=== PATIENT | female | born 1960 | race Caucasian/White ===

== ENCOUNTER 2018-11-12 12:00 | Inpatient (IN) | payer BC, OTHER ==
[2018-11-11 11:21] VITALS: BMI 21.6
[~2018-11-12] VITALS: Ht 165.1 cm; Wt 64.6 kg
[2018-11-20] VITALS (24 sets, daily range): BP systolic 99–158; BP diastolic 55–86; PULSE 90–117; RESP 8–19; Ht 165.1 cm; Wt 64.6 kg
[2018-11-20] MEDS ORDERED: SUCCINYLCHOLINE CHLORIDE 100 MG/5 ML SYG IV ONE (07:00)
[2018-11-20] MEDS ORDERED: ETOMIDATE 20 MG INJ ONE (07:00)
[2018-11-20] MEDS ORDERED: SEVOFLURANE 15 MIN ONE (07:00)
--- NOTE | 2018-11-20 07:28 | PREOPHP ---
DATE OF ADMISSION: 11/20/2018 HISTORY OF PRESENT ILLNESS: The patient was originally seen in the office for evaluation of neck bell n, shoulder pain, arm pain with difficulty in ambulation. She had an old MRI which shows a cervical 5 to 6 spondylosis. The patient had a repeat MRI of the cervical spine which showed a cervical 5-6 d isk rupture with cord compression and compression of the nerve root. Unfortunately, patient has fail ed conservative management. She wants something more definite to be done at this point. Surgical op tion was discussed with the patient in great detail with C5-C6 partial vertebrectomy, diskectomy, int erbody fusion, anterior locking plate. The patient understands and wants to proceed with surgery as soon as possible. PAST MEDICAL HISTORY: Per chart. SURGICAL HISTORY: Per chart. SOCIAL HISTORY: Denies drugs, alcohol, tobacco. ALLERGIES: PER CHART. MEDICATIONS: Taken at home per chart. FAMILY HISTORY: Unremarkable. REVIEW OF SYSTEMS: Additional 10-point review of systems conducted. Pertinent positives stated in h istory, otherwise negative. PHYSICAL EXAMINATION: GENERAL: The patient is awake, alert, and oriented, following commands. HEENT: Unremarkable. PULMONARY: No dyspnea noted. CARDIOVASCULAR: No JVD. No . ABDOMEN: Soft. No guarding. NEUROLOGICAL: She is GCS 15. EXTREMITIES: She has equal strength. Sensation is intact. MRI of the cervical spine shows C5-6 disk rupture with compression of the thecal sac as well as compr ession of the nerve root. Recommendation is to proceed with surgical intervention with a C5-6 partia l vertebrectomy, diskectomy, interbody fusion, anterior locking plate. The procedure was explained to the patient in great detail. I spent approximately 30 minutes going ov er details of surgery. Complications explained including infection, bleeding, permanent nerve damage , stroke, heart attack and even complications associated with anesthesia. The patient understands and wants to proceed with surgical intervention. She will be admitted to the hospital thereafter for fu rther care and management. Dictated By: HARSHIL ROLON/CHRIS Conf#: [id number] DID#: [id number]
[2018-11-20] MEDS ORDERED: SERT100T PO (10:56)
[2018-11-20] MEDS ORDERED: BUSP10TA2 PO (10:57)
[2018-11-20] MEDS ORDERED: LAMO100T83 PO (10:57)
[2018-11-20] MEDS ORDERED: CYCL10TA7 PO (10:58)
[2018-11-20] MEDS ORDERED: GABA-528 PO (10:58)
[2018-11-20] MEDS ORDERED: THROMBIN (BOVINE) 5,000 UNIT VIAL TP ONE (11:34)
[2018-11-20] MEDS ORDERED: LIDOCAINE 1%/EPI (1:100,000) (MDV) 20 ML ONE ×2 (11:34→15:01)
[2018-11-20] MEDS ORDERED: POLYMYXIN/BACITRACIN 1L IRRIG ONE (11:34)
[2018-11-20] MEDS ORDERED: GELATIN SIZE 100 SPONGE ONE (11:34)
[2018-11-20] MEDS ORDERED: MIDAZOLAM 1 MG/ML 2 ML INJ ONE ×2 (12:14→14:53)
[2018-11-20] MEDS ORDERED: DEXAMETHASONE 4 MG/ML 5 ML INJ ONE (13:38)
[2018-11-20] MEDS ORDERED: hydrALAzine 20 MG INJ ONE (13:43)
[2018-11-20] MEDS ORDERED: PROPOFOL 20 ML ONE (14:21)
[2018-11-20] MEDS ORDERED: LIDOCAINE 2% (SDV) 5 ML INJ ONE (14:21)
[2018-11-20] MEDS ORDERED: GLYCOPYRROLATE 0.4 MG INJ ONE (14:21)
[2018-11-20] MEDS ORDERED: NEOSTIGMINE 10 MG INJ ONE (14:21)
[2018-11-20] MEDS ORDERED: METOCLOPRAMIDE 10 MG INJ ONE (14:21)
[2018-11-20] MEDS ORDERED: ONDANSETRON 4 MG INJ ONE (14:21)
[2018-11-20] MEDS ORDERED: ROCURONIUM 50 MG INJ ONE (14:21)
--- NOTE | 2018-11-20 14:35 | OPR ---
Date/Time of Note Date/Time of Note DATE: 11/20/18 TIME: 14:32 Operative Report Preoperative Diagnosis CERVICAL FIVE SIX DISC RUPTURE Postoperative Diagnosis SAME Operation/Procedure Performed CERVICAL FIVE SIX PARTIAL VERTEBRECTOMY, DISKECTOMY, INTERBODY FUSION AND ANTERI OR LOCKING PLATE Surgeon see signature line Personnel Consultant DANAY JOSUE Anesthesia Type: general Estimated Blood Loss: 10 - 50 ml's Transfusion none Specimen NONE Grafts/Implants SYNTHES SIZE 10 INTERBODY LOCKING PLATE Complications none Procedure Description CERVICAL FIVE SIX PARTIAL VERTEBRECTOMY, DISKECTOMY, INTERBODY FUSION AND ANTERIOR LOCKING PLATE DANAY YEPEZ PA-C Nov 20, 2018 14:35
[2018-11-20] MEDS ORDERED: CEFAZOLIN 1 GM INJ ONE (14:42)
[2018-11-20] MEDS ORDERED: FENTAnyl 50 MCG/ML VIAL ONE (14:49)
--- NOTE | 2018-11-20 14:56 | PAC ---
Date/Time of Note Date/Time of Note DATE: 11/20/18 TIME: 14:55 Post-Anesthesia Notes Post-Anesthesia Note Last documented vital signs Vital Signs Date Temp Pulse Resp B/P (MAP) Pulse Ox O2 O2 Flow FiO2 Time Delivery Rate 11/20/18 99.8 94 16 158/76 97 10:30 (103) Activity: WNL Respiratory function: WNL Cardiovascular function: WNL Mental status: Baseline Pain reasonably controlled: Yes Hydration appropriate: Yes Nausea/Vomiting absent: Yes Comments BP:112/67, P:88, Spo2:100%, T:98,9 SARAH MORILLO MD Nov 20, 2018 14:55
[2018-11-20] MEDS ORDERED: HYDROmorphONE 1 MG/5 ML IV SYRINGE IV ONE (14:59)
[2018-11-20] MEDS ORDERED: niCARdipine 50 MG in SOD CHLORIDE 0.9% 480 ML IV PRN (15:00)
[2018-11-20] MEDS ORDERED: ONDANSETRON 4 MG INJ IV PRN ×2 (15:00)
[2018-11-20] MEDS ORDERED: FENTAnyl 50 MCG/ML VIAL IV PRN (15:00)
[2018-11-20] MEDS ORDERED: LABETALOL HCL 20MG INJ IV PRN (15:00)
[2018-11-20] MEDS ORDERED: HYDROmorphONE 1 MG/5 ML IV SYRINGE IV PRN (15:00)
[2018-11-20] MEDS ORDERED: hydrALAzine 20 MG INJ IV PRN (15:00)
[2018-11-20] MEDS ORDERED: MIDAZOLAM 1 MG/ML 2 ML INJ IV PRN (15:00)
[2018-11-20] MEDS ORDERED: METOCLOPRAMIDE 10 MG INJ IV PRN (15:00)
[2018-11-20] MEDS: HYDROmorphONE 1 MG/5 ML IV SYRINGE IV PRN ×2 (15:02→15:11)
[2018-11-20] MEDS ORDERED: MIDAZOLAM 1 MG/ML 2 ML INJ IV ONE (15:30)
[2018-11-20] MEDS: FENTAnyl 50 MCG/ML VIAL IV PRN ×2 (16:07→16:31)
[2018-11-20] MEDS ORDERED: HYDROmorphONE 0.2 MG/ML PCA ONE (16:19)
[2018-11-20] MEDS ORDERED: HYDROmorphONE 0.2 MG/ML PCA IV SCH (16:30)
--- NOTE | 2018-11-20 17:45 | HP ---
Date/Time of Note Date/Time of Note DATE: 11/20/18 TIME: 17:42 Assessment/Plan VTE Prophylaxis Risk score (from Nsg)>0 risk: 3 SCD applied (from Nsg): Yes SCD contraindicated: other Pharmacological prophylaxis: other Lines/Catheters IV Catheter Type (from Nrsg): Peripheral IV Urinary Cath still in place: Yes Reason Cath still needed: urinary retention, other (indicate) (sp p ost op ) Assessment/Plan Assessment/Plan - CERVICAL 5- CERVICAL 6 DISC RUPTURE -- Intractable neck; shoulder. BUE pain- 2/2 above - SP CERVICAL FIVE SIX PARTIAL VERTEBRECTOMY, DISKECTOMY, INTERBODY FUSION AND ANTERIOR LOCKING PLATE today - admit to ICU - admission orders done - per neuro surgery - diet per neuro sx - pain control- Dilaudid PIPE FITTER - SCD - Hx OF C5-C6 - Anxiety- none at present - Mood disorder Patient seen in collaboration with Dr Sanduh HPI/ROS Admit Date/Time Admit Date/Time Nov 20, 2018 at 09:47 Hx of Present Illness This 58 years old female patient was seen by Dr Dwyer for evaluation of her neck pain, shoulder pain, arm pain with difficulty in ambulation. Her old MRI which shows a cervical 5 to 6 spondylosis. Then a repeat MRI of the cervical spine showed cervical 5-6 disk rupture with cord compression and compression of the nerve root. But patient failed the conservative management. Patient underwent C5-C6 partial vertebrectomy, diskectomy, interbody fusion, anterior locking plate today by Patient is admitted in ICU under Dr Sandhu for further evaluation and treatment. During assessment; watching TV; seems comfortable; patient has NAD; feels better. He denies any chest pain, shortness of breath, palpitations. headache,focal weakness/numbness, right or left calf pain, abdominal pain, nausea/vomitting/diarrhea. Family at bed side- all Qs answered.Plan of care reviewed with family and staff ROS Constitutional: improved Eyes: no complaints ENT: no complaints Respiratory: no complaints Cardiovascular: no complaints Gastrointestinal: pain Genitourinary: no complaints Musculoskeletal: neck pain Skin: no complaints Neurologic: no complaints Endocrine: no complaints Lymphatic: no complaints PMH/Family/Social Past Medical History -C5-C6 spondylosis -Mood disorder -Anxiety Medical History: hypertension Medications Current Medications Dextrose/Lactated Ringer's 1,000 ml @ 120 mls/hr Q8H20M IV ; Start 11/20/18 at 15:00 Cefazolin Sodium 50 ml @ 100 mls/hr Q8 IVPB ; Start 11/20/18 at 22:00; Stop 11/21/18 at 22:00 Nicardipine HCl 50 mg/Sodium Chloride 500 ml @ 50 mls/hr TITRATE PRN IV KEEP SBP<140; Start 11/20/18 at 15:00 Ondansetron HCl (Zofran Inj) 4 mg Q6H PRN IV NAUSEA AND/OR VOMITING; Start 11/20/18 at 15:00 Hydromorphone HCl (Dilaudid) 1 mg Q3H PRN IV SEVERE PAIN LEVEL 7-10; Start 11/20/18 at 15:00 Dexamethasone (Decadron) 4 mg Q6 IV ; Start 11/20/18 at 18:00; Stop 11/21/18 at 18:00 Hydromorphone HCl (Dilaudid) 0.2 mg PACU PRN IV MILD PAIN 1-3 Last administered on 11/20/18at 15:26; Admin Dose 0.2 MG; Start 11/20/18 at 15:00; Stop 11/20/18 at 19:00 Hydromorphone HCl (Dilaudid) 0.4 mg PACU PRN IV MOD PAIN 4-6 Last administered on 11/20/18at 15:11; Admin Dose 0.4 MG; Start 11/20/18 at 15:00; Stop 11/20/18 at 19:00 Fentanyl (Sublimaze) 25 mcg PACU ORDER PRN IV MILD PAIN 1-3 Last administered on 11/20/18at 16:31; Admin Dose 25 MCG; Start 11/20/18 at 15:00; Stop 11/20/18 at 19:00 Fentanyl (Sublimaze) 50 mcg PACU ORDER PRN IV MOD PAIN 4-6; Start 11/20/18 at 15:00; Stop 11/20/18 at 19:00 Ondansetron HCl (Zofran Inj) 4 mg PACU ORDER PRN IV NAUSEA/VOMITING; Start 11/20/18 at 15:00; Stop 11/20/18 at 19:00 Metoclopramide HCl (Reglan) 10 mg PACU ORDER PRN IV NAUSEA/VOMITING; Start 11/20/18 at 15:00; Stop 11/20/18 at 19:00 Labetalol HCl (Labetalol) 5 mg PACU ORDER PRN IV HIGH BLOOD PRESSURE; Start 11/20/18 at 15:00; Stop 11/20/18 at 19:00 Hydralazine HCl (Apresoline) 5 mg PACU ORDER PRN IV HIGH BLOOD PRESSURE; Start 11/20/18 at 15:00; Stop 11/20/18 at 19:00 Midazolam HCl (Versed) 0.5 mg PACU ORDER PRN IV .ANXIETY; Start 11/20/18 at 15:00; Stop 11/20/18 at 19:00 Hydromorphone HCl (Dilaudid PIPE FITTER) 0.4 mg Q4PCA IV Last administered on 11/20/18at 16:27; Admin Dose 0.4 MG; Start 11/20/18 at 16:30 Coded Allergies: diphenhydramine (Verified Allergy, Unknown, AGGITATED, 11/20/18) morphine (Verified Allergy, Unknown, ITCHY, 11/20/18) Past Surgical History Past Surgical Hx: cholecystectomy Family History Significant Family History: no pertinent family hx Social History Smoking Status: Former smoker Drug Use: none Exam/Review of Systems Vital Signs Vitals Vital Signs Date Temp Pulse Resp B/P (MAP) Pulse Ox O2 O2 Flow FiO2 Time Delivery Rate 11/20/18 103 11 113/72 98 17:15 (86) 11/20/18 98.0 17:03 11/20/18 Nasal 2.0 16:38 Cannula Exam Constitutional: alert, well developed Psych: nl mood/affect Head: atraumatic Eyes: nl lids ENMT: nl external ears & nose Neck: supple Respiratory: diminished breath sounds Cardiovascular: nl pulses, other (s1s2) Gastrointestinal: soft, non-tender Genitourinary - Female: other (deffered) Musculoskeletal: nl extremities to inspection Extremities: normal pulses Neurological: nl speech, other (sp C5-C6 surgey; hard neck collar noted; inta ct) Skin: nl ELENA Lyons Nov 20, 2018 17:45
[2018-11-20] MEDS: DEXTROSE 5%-LR 1,000 ML IV SCH ×2 (18:06→19:00)
[2018-11-20] MEDS: DEXAMETHASONE 4 MG/ML 1 ML INJ IV SCH ×2 (18:40→23:35)
[2018-11-20] MEDS: BUSPIRONE 5 MG TAB PO SCH (20:47)
[2018-11-20] MEDS: LAMOTRIGINE 100 MG TAB PO SCH (20:47)
[2018-11-20] MEDS: GABAPENTIN 400 MG CAP PO SCH (20:51)
[2018-11-20] MEDS: CEFAZOLIN 1 GM/50 ML (PMX) 50 ML IVPB SCH (21:36)
[2018-11-20] MEDS: HYDROmorphONE 0.2 MG/ML PCA IV SCH (23:03)
[2018-11-21] VITALS (45 sets, daily range): BP systolic 82–166; BP diastolic 68–127; PULSE 85–120; RESP 5–41
[2018-11-21] MEDS: DEXTROSE 5%-LR 1,000 ML IV SCH ×4 (02:41→22:13)
[2018-11-21] MEDS: DEXAMETHASONE 4 MG/ML 1 ML INJ IV SCH ×3 (05:06→18:04)
[2018-11-21] MEDS: CEFAZOLIN 1 GM/50 ML (PMX) 50 ML IVPB SCH ×3 (05:06→21:19)
[2018-11-21] MEDS: BUSPIRONE 5 MG TAB PO SCH ×2 (08:29→20:03)
[2018-11-21] MEDS: GABAPENTIN 400 MG CAP PO SCH ×3 (08:30→20:04)
[2018-11-21] MEDS: SERTRALINE 100 MG TAB PO SCH (08:30)
[2018-11-21] MEDS: HYDROmorphONE 1 MG/ML SYG IV PRN ×5 (08:34→22:25)
[2018-11-21] MEDS: HYDROmorphONE 0.2 MG/ML PCA IV SCH (11:16)
--- NOTE | 2018-11-21 11:43 | CONS ---
Assessment/Plan Assessment/Plan Assessment/Plan (Daily) seen and examined awake alert follows moves all sens intact wound looks ok, dry ok to leave unit pt/ot advance diet dc optometric tech add percocet ok to take weir out Consultation Date/Type/Reason Admit Date/Time Nov 20, 2018 at 09:47 Initial Consult Date Date/Time of Note DATE: 11/21/18 TIME: 11:42 Exam/Review of Systems Exam Vitals Vital Signs Date Temp Pulse Resp B/P (MAP) Pulse Ox O2 O2 Flow FiO2 Time Delivery Rate 11/21/18 95 15 129/81 95 11:30 (97) 11/21/18 98.6 08:00 11/21/18 Room Air 07:00 11/20/18 2.0 17:00 Intake and Output 11/20/18 11/20/18 11/21/18 1515:00 23:00 07:00 IntakeIntake Total 800 ml 730 ml 1085 ml OutputOutput Total 50 ml 1725 ml 715 ml BalanceBalance 750 ml -995 ml 370 ml Results Result Diagram: 11/21/18 0452 11/21/18 0452 Results 24hrs Laboratory Tests Test 11/21/18 04:52 11/21/18 05:05 White Blood Count 12.5 H Red Blood Count 4.34 Hemoglobin 12.9 Hematocrit 40.2 Mean Corpuscular Volume 92.6 Mean Corpuscular Hemoglobin 29.7 Mean Corpuscular Hemoglobin Concent 32.1 Red Cell Distribution Width 13.0 Platelet Count 277 Mean Platelet Volume 10.6 H Immature Granulocytes % 0.900 H Neutrophils % 88.4 H Lymphocytes % 8.9 L Monocytes % 1.7 Eosinophils % 0.0 Basophils % 0.1 Nucleated Red Blood Cells % 0.0 Immature Granulocytes # 0.110 H Neutrophils # 11.1 H Lymphocytes # 1.1 Monocytes # 0.2 L Eosinophils # 0.0 Basophils # 0.0 Nucleated Red Blood Cells # 0.0 Sodium Level 142 Potassium Level 4.3 Chloride Level 108 Carbon Dioxide Level 28 Anion Gap 6 Blood Urea Nitrogen 10 Creatinine 0.58 Est Glomerular Filtrat Rate mL/min > 60 Glucose Level 158 Calcium Level 9.8 Lab Scanned Report REFERENCE LAB Medications Medication Current Medications Dextrose/Lactated Ringer's 1,000 ml @ 120 mls/hr Q8H20M IV Last administered on 4/20/19at 02:41; Admin Dose 120 MLS/HR; Start 11/20/18 at 15:00 Cefazolin Sodium 50 ml @ 100 mls/hr Q8 IVPB Last administered on 11/21/18 05:06; Admin Dose 100 MLS/HR; Start 11/20/18 at 22:00; Stop 11/21/18 at 22:00 Nicardipine HCl 50 mg/Sodium Chloride 500 ml @ 50 mls/hr TITRATE PRN IV KEEP SBP<140; Start 11/20/18 at 15:00 Ondansetron HCl (Zofran Inj) 4 mg Q6H PRN IV NAUSEA AND/OR VOMITING; Start 11/20/18 at 15:00 Hydromorphone HCl (Dilaudid) 1 mg Q3H PRN IV SEVERE PAIN LEVEL 7-10 Last administered on 11/21/18 08:34; Admin Dose 1 MG; Start 11/20/18 at 15:00 Dexamethasone (Decadron) 4 mg Q6 IV Last administered on 11/21/18 05:06; Admin Dose 4 MG; Start 11/20/18 at 18:00; Stop 11/21/18 at 18:00 Buspirone HCl (Buspar) 15 mg BID PO Last administered on 11/21/18 08:29; Admin Dose 15 MG; Start 11/20/18 at 21:00 Gabapentin (Neurontin) 800 mg TID PO ; Start 11/20/18 at 21:00 Lamotrigine (Lamictal) 100 mg QHS PO Last administered on 11/20/18 20:47; Admin Dose 100 MG; Start 11/20/18 at 21:00 Sertraline HCl (Zoloft) 100 mg QAM PO Last administered on 11/21/18 08:30; Admin Dose 100 MG; Start 11/21/18 at 09:00 Hydromorphone HCl (Dilaudid ASSISTANT SPEECH LANGUAGE PATHOLOGIST) 6 mg Q4PCA IV Last administered on 11/21/18 11:16; Admin Dose 6 MG; Start 11/20/18 at 23:00 DANAY YEPEZ PA-C Nov 21, 2018 11:43
--- NOTE | 2018-11-21 11:47 | PN ---
Date/Time of Note Date/Time of Note DATE: 11/21/18 TIME: 11:47 Assessment/Plan VTE Prophylaxis Risk score (from Nsg)>0 risk: 2 SCD applied (from Nsg): Yes Pharmacological prophylaxis: LMWH Lines/Catheters IV Catheter Type (from Nrsg): Peripheral IV Urinary Cath still in place: Yes Reason Cath still needed: skin wounds contaminated by urine Assessment/Plan Hospital Course - CERVICAL 5- CERVICAL 6 DISC RUPTURE -- Intractable neck; shoulder. 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 - SCD - Hx OF C5-C6 - Anxiety- none at present - Mood disorder Result Diagram: 11/21/182 11/21/182 Results 24hrs Laboratory Tests Test 11/21/18 04:52 11/21/18 05:05 White Blood Count 12.5 H Red Blood Count 4.34 Hemoglobin 12.9 Hematocrit 40.2 Mean Corpuscular Volume 92.6 Mean Corpuscular Hemoglobin 29.7 Mean Corpuscular Hemoglobin Concent 32.1 Red Cell Distribution Width 13.0 Platelet Count 277 Mean Platelet Volume 10.6 H Immature Granulocytes % 0.900 H Neutrophils % 88.4 H Lymphocytes % 8.9 L Monocytes % 1.7 Eosinophils % 0.0 Basophils % 0.1 Nucleated Red Blood Cells % 0.0 Immature Granulocytes # 0.110 H Neutrophils # 11.1 H Lymphocytes # 1.1 Monocytes # 0.2 L Eosinophils # 0.0 Basophils # 0.0 Nucleated Red Blood Cells # 0.0 Sodium Level 142 Potassium Level 4.3 Chloride Level 108 Carbon Dioxide Level 28 Anion Gap 6 Blood Urea Nitrogen 10 Creatinine 0.58 Est Glomerular Filtrat Rate mL/min > 60 Glucose Level 158 Calcium Level 9.8 Lab Scanned Report REFERENCE LAB Subjective 24 Hr Interval Summary Free Text/Dictation Patient feels anxious and has neck and back pain Exam/Review of Systems Exam Vitals Vital Signs Date Temp Pulse Resp B/P (MAP) Pulse Ox O2 O2 Flow FiO2 Time Delivery Rate 11/21/18 95 15 129/81 95 11:30 (97) 11/21/18 98.6 08:00 11/21/18 Room Air 07:00 11/20/18 2.0 17:00 Intake and Output 11/20/18 11/20/18 11/21/18 1515:00 23:00 07:00 IntakeIntake Total 800 ml 730 ml 1085 ml OutputOutput Total 50 ml 1725 ml 715 ml BalanceBalance 750 ml -995 ml 370 ml Constitutional: well developed Head: normocephalic, atraumatic Neck: supple Respiratory: clear to auscultation Cardiovascular: regular rate and rhythm Gastrointestinal: soft, non-tender Extremities: normal pulses Results Results 24hrs Laboratory Tests Test 11/21/18 04:52 11/21/18 05:05 White Blood Count 12.5 H Red Blood Count 4.34 Hemoglobin 12.9 Hematocrit 40.2 Mean Corpuscular Volume 92.6 Mean Corpuscular Hemoglobin 29.7 Mean Corpuscular Hemoglobin Concent 32.1 Red Cell Distribution Width 13.0 Platelet Count 277 Mean Platelet Volume 10.6 H Immature Granulocytes % 0.900 H Neutrophils % 88.4 H Lymphocytes % 8.9 L Monocytes % 1.7 Eosinophils % 0.0 Basophils % 0.1 Nucleated Red Blood Cells % 0.0 Immature Granulocytes # 0.110 H Neutrophils # 11.1 H Lymphocytes # 1.1 Monocytes # 0.2 L Eosinophils # 0.0 Basophils # 0.0 Nucleated Red Blood Cells # 0.0 Sodium Level 142 Potassium Level 4.3 Chloride Level 108 Carbon Dioxide Level 28 Anion Gap 6 Blood Urea Nitrogen 10 Creatinine 0.58 Est Glomerular Filtrat Rate mL/min > 60 Glucose Level 158 Calcium Level 9.8 Lab Scanned Report REFERENCE LAB Medications Medication Current Medications Dextrose/Lactated Ringer's 1,000 ml @ 120 mls/hr Q8H20M IV Last administered on 11/21/18at 02:41; Admin Dose 120 MLS/HR; Start 11/20/18 at 15:00 Cefazolin Sodium 50 ml @ 100 mls/hr Q8 IVPB Last administered on 11/21/18at 05:06; Admin Dose 100 MLS/HR; Start 11/20/18 at 22:00; Stop 11/21/18 at 22:00 Nicardipine HCl 50 mg/Sodium Chloride 500 ml @ 50 mls/hr TITRATE PRN IV KEEP SBP<140; Start 11/20/18 at 15:00 Ondansetron HCl (Zofran Inj) 4 mg Q6H PRN IV NAUSEA AND/OR VOMITING; Start 11/20/18 at 15:00 Hydromorphone HCl (Dilaudid) 1 mg Q3H PRN IV SEVERE PAIN LEVEL 7-10 Last administered on 11/21/18 08:34; Admin Dose 1 MG; Start 11/20/18 at 15:00 Dexamethasone (Decadron) 4 mg Q6 IV Last administered on 11/21/18 05:06; Admin Dose 4 MG; Start 11/20/18 at 18:00; Stop 11/21/18 at 18:00 Buspirone HCl (Buspar) 15 mg BID PO Last administered on 11/21/18 08:29; Admin Dose 15 MG; Start 11/20/18 at 21:00 Gabapentin (Neurontin) 800 mg TID PO ; Start 11/20/18 at 21:00 Lamotrigine (Lamictal) 100 mg QHS PO Last administered on 11/20/18 20:47; Admin Dose 100 MG; Start 11/20/18 at 21:00 Sertraline HCl (Zoloft) 100 mg QAM PO Last administered on 11/21/18 08:30; Admin Dose 100 MG; Start 11/21/18 at 09:00 Hydromorphone HCl (Dilaudid [employer]SEMBLER) 6 mg Q4PCA IV Last administered on 11/21/18 11:16; Admin Dose 6 MG; Start 11/20/18 at 23:00 Oxycodone/ Acetaminophen (Endocet (10/ 325)) 1 tab Q4H PRN PO MODERATE PAIN LEVEL 4-6; Start 11/21/18 at 12:00; Status UNV Clonidine (Catapres) 0.1 mg Q4H PRN PO sbp>150; Start 11/21/18 at 12:00; Status UNV VICENTE MADDEN Nov 21, 2018 11:47
[2018-11-21] MEDS ORDERED: OXYCODONE/ACETAMINOPHEN (10/325) TAB PO PRN (12:00)
[2018-11-21] MEDS ORDERED: LORAZEPAM 2 MG INJ ONE (13:33)
[2018-11-21] MEDS ORDERED: ALPRAZOLAM 1 MG TAB ONE (13:36)
[2018-11-21] MEDS ORDERED: LORAZEPAM 2 MG INJ IV PRN (14:00)
[2018-11-21] MEDS: ALPRAZOLAM 1 MG TAB PO PRN ×2 (15:19→22:25)
[2018-11-21] MEDS: LAMOTRIGINE 100 MG TAB PO SCH (20:03)
[2018-11-22] VITALS (13 sets, daily range): BP systolic 95–154; BP diastolic 77–113; PULSE 73–107; RESP 7–24
[2018-11-22] MEDS: HYDROmorphONE 1 MG/ML SYG IV PRN ×3 (03:42→10:33)
--- NOTE | 2018-11-22 07:00 | CONS ---
Assessment/Plan Assessment/Plan Assessment/Plan (Daily) seen and examined awake alert follows moves all sensation intact ok to go home around lunchtime fu instructions given Consultation Date/Type/Reason Admit Date/Time Nov 20, 2018 at 09:47 Initial Consult Date Date/Time of Note DATE: 11/22/18 TIME: 06:59 Exam/Review of Systems Exam Vitals Vital Signs Date Temp Pulse Resp B/P (MAP) Pulse Ox O2 O2 Flow FiO2 Time Delivery Rate 11/22/18 91 15 133/79 97 Room Air 06:18 (97) 11/22/18 98.2 04:00 11/20/18 2.0 17:00 Intake and Output 11/21/18 11/21/18 11/22/18 1515:00 23:00 07:00 IntakeIntake Total 1850 ml 1155 ml 990 ml OutputOutput Total 425 ml 350 ml 550 ml BalanceBalance 1425 ml 805 ml 440 ml Results Result Diagram: 11/22/18 0428 11/22/18 0428 Results 24hrs Laboratory Tests Test 11/21/18 11:11 11/22/18 04:28 Urine Color STRAW Urine Clarity CLEAR Urine pH 5.0 Urine Specific [place] 1.010 Urine Ketones NEGATIVE Urine Nitrite NEGATIVE Urine Bilirubin NEGATIVE Urine Urobilinogen NEGATIVE Urine Leukocyte Esterase NEGATIVE Urine Microscopic RBC 1 Urine Microscopic WBC 1 Urine Hemoglobin 1+ H Urine Glucose NEGATIVE Urine Total Protein NEGATIVE White Blood Count 12.7 H Red Blood Count 3.73 L Hemoglobin 11.2 L Hematocrit 34.4 L Mean Corpuscular Volume 92.2 Mean Corpuscular Hemoglobin 30.0 Mean Corpuscular Hemoglobin Concent 32.6 Red Cell Distribution Width 13.1 Platelet Count 251 Mean Platelet Volume 10.5 H Immature Granulocytes % 0.600 H Neutrophils % 80.6 H Lymphocytes % 12.8 L Monocytes % 5.9 Eosinophils % 0.0 Basophils % 0.1 Nucleated Red Blood Cells % 0.0 Immature Granulocytes # 0.080 H Neutrophils # 10.2 H Lymphocytes # 1.6 Monocytes # 0.8 Eosinophils # 0.0 Basophils # 0.0 Nucleated Red Blood Cells # 0.0 Sodium Level 142 Potassium Level 3.9 Chloride Level 102 Carbon Dioxide Level 32 H Anion Gap 8 Blood Urea Nitrogen 10 Creatinine 0.56 Est Glomerular Filtrat Rate mL/min > 60 Glucose Level 128 Calcium Level 9.2 Medications Medication Current Medications Ondansetron HCl (Zofran Inj) 4 mg Q6H PRN IV NAUSEA AND/OR VOMITING; Start 11/20/18 at 15:00 Hydromorphone HCl (Dilaudid) 1 mg Q3H PRN IV SEVERE PAIN LEVEL 7-10 Last administered on 11/22/18 06:54; Admin Dose 1 MG; Start 11/20/18 at 15:00 Buspirone HCl (Buspar) 15 mg BID PO Last administered on 11/21/18 20:03; Admin Dose 15 MG; Start 11/20/18 at 21:00 Gabapentin (Neurontin) 800 mg TID PO ; Start 11/20/18 at 21:00 Lamotrigine (Lamictal) 100 mg QHS PO Last administered on 11/21/18 20:03; Admin Dose 100 MG; Start 11/20/18 at 21:00 Sertraline HCl (Zoloft) 100 mg QAM PO Last administered on 11/21/18 08:30; Admin Dose 100 MG; Start 11/21/18 at 09:00 Oxycodone/ Acetaminophen (Endocet (10/ 325)) 1 tab Q4H PRN PO MODERATE PAIN LEVEL 4-6 Last administered on 11/21/18 13:19; Admin Dose 1 TAB; Start 11/21/18 at 12:00 Clonidine (Catapres) 0.1 mg Q4H PRN PO sbp>150; Start 11/21/18 at 12:00 Alprazolam (Xanax) 1 mg Q8 PRN PO AGITATION/ANXIETY Last administered on 11/21/18 22:25; Admin Dose 1 MG; Start 11/21/18 at 14:00 DANAY YEPEZ PA-C Nov 22, 2018 07:00
[2018-11-22] MEDS: GABAPENTIN 400 MG CAP PO SCH ×2 (08:35→09:00)
[2018-11-22] MEDS: BUSPIRONE 5 MG TAB PO SCH (08:36)
[2018-11-22] MEDS: SERTRALINE 100 MG TAB PO SCH (08:36)
[2018-11-22] MEDS: ALPRAZOLAM 1 MG TAB PO PRN (10:33)
--- NOTE | 2018-11-22 11:50 | DS ---
Date/Time of Note Date/Time of Note DATE: 11/22/18 TIME: 11:48 Discharge Summary Admission/Discharge Info Admit Date/Time Nov 20, 2018 at 09:47 Discharge Date/Time 11/22/18 Discharge Diagnosis - CERVICAL 5- CERVICAL 6 DISC RUPTURE -- Intractable neck; shoulder. BUE pain- 2/2 above - SP CERVICAL FIVE SIX PARTIAL VERTEBRECTOMY, DISKECTOMY, INTERBODY FUSION AND ANTERIOR LOCKING PLATE today - admit to ICU - admission orders done - per neuro surgery - diet per neuro sx - pain control- Dilaudid BROOM STITCHER - SCD - Hx OF C5-C6 - Anxiety- none at present - Mood disorder Patient Condition: Fair Consults Neurosurgery Procedures CERVICAL FIVE SIX PARTIAL VERTEBRECTOMY, DISKECTOMY, INTERBODY FUSION AND ANTERIOR LOCKING PLATE today Hx of Present Illness Patient comes in with severe neck and bilateral upper extremity pain. Hospital Course Patient comes in with severe neck and bilateral upper extremity pain. Patient un derwent surgery of C5-6 spine. Patient tolerated the procedure and when felt to be stable, she was sent home. - CERVICAL 5- CERVICAL 6 DISC RUPTURE -- Intractable neck; shoulder. BUE pain- 2/2 above - SP CERVICAL FIVE SIX PARTIAL VERTEBRECTOMY, DISKECTOMY, INTERBODY FUSION AND ANTERIOR LOCKING PLATE today - admit to ICU - admission orders done - per neuro surgery - diet per neuro sx - pain control- Dilaudid BROOM STITCHER - SCD - Hx OF C5-C6 - Anxiety- none at present - Mood disorder Home Meds Reported Medications Gabapentin* (Gabapentin*) 800 Mg Tablet, 800 MG PO TID, #90 TAB 11/20/18 Cyclobenzaprine Hcl* (Cyclobenzaprine Hcl*) 10 Mg Tablet, 10 MG PO TID, #90 TAB 11/20/18 Buspirone Hcl* (Buspirone Hcl*) 10 Mg Tab, 15 MG PO BID, TAB 11/20/18 Lamotrigine* (Lamictal*) 100 Mg Tablet, 100 MG PO QHS, TAB 11/20/18 Sertraline Hcl* (Zoloft*) 100 Mg Tablet, 100 MG PO QAM, #30 TAB 11/20/18 Primary Care Provider Not On Staff Doctor Pending Labs Laboratory Tests Test 11/22/18 04:28 White Blood Count 12.7 10^3/ul (4.8-10.8) Red Blood Count 3.73 10^6/ul (4.20-5.40) Hemoglobin 11.2 g/dl (12.0-16.0) Hematocrit 34.4 % (37.0-47.0) Mean Corpuscular Volume 92.2 fl (82.0-101.0) Mean Corpuscular Hemoglobin 30.0 pg (29.0-33.0) Mean Corpuscular Hemoglobin Concent 32.6 g/dl (32.0-37.0) Red Cell Distribution Width 13.1 % (11.5-14.5) Platelet Count 251 10^3/UL (140-415) Mean Platelet Volume 10.5 fl (7.4-10.4) Immature Granulocytes % 0.600 % (0.001-0.429) Neutrophils % 80.6 % (39.0-77.0) Lymphocytes % 12.8 % (15.0-51.0) Monocytes % 5.9 % (0.0-11.0) Eosinophils % 0.0 % (0.0-7.0) Basophils % 0.1 % (0.0-2.0) Nucleated Red Blood Cells % 0.0 /100WBC (0.0-0.0) Immature Granulocytes # 0.080 10^3/ul (0.0-0.031) Neutrophils # 10.2 10^3/ul (1.6-7.5) Lymphocytes # 1.6 10^3/ul (0.8-2.9) Monocytes # 0.8 10^3/ul (0.3-0.9) Eosinophils # 0.0 10^3/ul (0.0-0.5) Basophils # 0.0 10^3/ul (0.0-0.1) Nucleated Red Blood Cells # 0.0 10^3/ul (0.0-0.0) Sodium Level 142 mmol/L (135-144) Potassium Level 3.9 mmol/L (3.5-5.1) Chloride Level 102 mmol/L (97-110) Carbon Dioxide Level 32 mmol/L (21-31) Anion Gap 8 (5-13) Blood Urea Nitrogen 10 mg/dl (7-20) Creatinine 0.56 mg/dl (0.44-1.00) Est Glomerular Filtrat Rate mL/min > 60 mL/min (>60) Glucose Level 128 mg/dl (70-220) Calcium Level 9.2 mg/dl (8.4-10.2) VICENTE MADDEN Nov 22, 2018 11:50
== END 2018-11-22 12:45 | disposition home or self-care (01) | DRG 472 ==
LOC: REC 11-20 09:47 → ICU 11-20 17:07
PROVIDERS: ADMIT Neurological Surgery; ATTEND Neurological Surgery
PROC: 0RT30ZZ Resection of Cervical Vertebral Disc, Open Approach (ICD-10-PCS; 2018-11-20)
PROC: 0RG10K0 Fusion of Cervical Vertebral Joint with Nonautologous Tissue Substitute, Anterior Approach, Anterior Column, Open Approach (ICD-10-PCS; principal; 2018-11-20 12:00)
DX: M50.122 Cervical disc disorder at C5-C6 level with radiculopathy (principal); M50.022 Cervical disc disorder at C5-C6 level with myelopathy; M48.02 Spinal stenosis, cervical region; F39 Unspecified mood [affective] disorder
CPT/HCPCS: 72040; 80048; 81001; 85025; 86850; 86900; 86901; 87081; 87086; 97162; C1713; J0360; J0690; J1100; J1170; J2060; J2250; J2405; J2710; J2765; J3010; J7121

== ENCOUNTER 2019-05-25 10:07 | Inpatient (IN) | payer BC ==
[2019-05-21 14:01] VITALS: BMI 23.3
[~2019-05-25] VITALS: Ht 165.1 cm; Wt 64.8 kg
[2019-05-25] VITALS (43 sets, daily range): BP systolic 93–139; BP diastolic 46–89; PULSE 89–114; RESP 10–42; Ht 165.1 cm; Wt 64.8 kg
[~2019-05-25 10:07] MED LIST: BUSP10TA2 PO; CYCL10TA7 PO; GABA-528 PO; LAMO100T83 PO; SERT100T PO
[2019-05-25] MEDS ORDERED: LACTATED RINGER'S 1,000 ML IV SCH (11:00)
[2019-05-25] MEDS ORDERED: SEVOFLURANE 15 MIN ONE (12:00)
[2019-05-25] MEDS ORDERED: GELATIN SIZE 100 SPONGE ONE (12:04)
[2019-05-25] MEDS ORDERED: THROMBIN 5000 UNIT (RECOTHROM) VIAL ONE (12:04)
[2019-05-25] MEDS ORDERED: LIDOCAINE 1%/EPI 30 ML INJ ONE (12:04)
[2019-05-25] MEDS ORDERED: POLYMYXIN/BACITRACIN 1L IRRIG ONE (12:04)
[2019-05-25] MEDS ORDERED: LIDOCAINE 2% (SDV) 5 ML INJ ONE (12:05)
[2019-05-25] MEDS ORDERED: SUCCINYLCHOLINE CHLORIDE 100 MG/5 ML SYG IV ONE (12:05)
[2019-05-25] MEDS ORDERED: ROCURONIUM 50 MG INJ ONE ×2 (12:05→14:00)
[2019-05-25] MEDS ORDERED: PROPOFOL 20 ML ONE (12:05)
[2019-05-25] MEDS ORDERED: NEOSTIGMINE 3 MG/3 ML SYRINGE ONE (12:05)
[2019-05-25] MEDS ORDERED: MEPERIDINE 100 MG INJ ONE (12:05)
[2019-05-25] MEDS ORDERED: GLYCOPYRROLATE 0.4 MG INJ ONE ×2 (12:05→14:00)
[2019-05-25] MEDS ORDERED: MIDAZOLAM 1 MG/ML 2 ML INJ ONE (12:06)
[2019-05-25] MEDS ORDERED: CEFAZOLIN 1 GM INJ ONE (13:27)
[2019-05-25] MEDS ORDERED: ONDANSETRON 4 MG INJ ONE ×2 (15:12→15:30)
[2019-05-25] MEDS ORDERED: FENTAnyl 50 MCG/ML VIAL ONE (15:14)
[2019-05-25] MEDS ORDERED: morphine 2 MG INJ ONE (15:29)
[2019-05-25] MEDS ORDERED: hydrALAzine 20 MG INJ IV PRN (15:30)
[2019-05-25] MEDS ORDERED: EPHEDrine 25 MG/5 ML SYG IV PRN (15:30)
[2019-05-25] MEDS ORDERED: MIDAZOLAM 1 MG/ML 2 ML INJ IV PRN (15:30)
[2019-05-25] MEDS ORDERED: ONDANSETRON 4 MG INJ IV PRN (15:30)
[2019-05-25] MEDS ORDERED: MEPERIDINE 25 MG INJ IV PRN (15:30)
[2019-05-25] MEDS ORDERED: HYDROmorphONE 1 MG/5 ML IV SYRINGE IV PRN ×2 (15:30)
[2019-05-25] MEDS ORDERED: FENTAnyl 50 MCG/ML VIAL IV PRN ×3 (15:30)
[2019-05-25] MEDS ORDERED: niCARdipine 50 MG in SOD CHLORIDE 0.9% 480 ML IV SCH (15:30)
[2019-05-25] MEDS ORDERED: METOCLOPRAMIDE 10 MG INJ IV PRN (15:30)
[2019-05-25] MEDS ORDERED: LABETALOL HCL 20MG INJ IV PRN (15:30)
[2019-05-25] MEDS: morphine 4 MG/ML VIAL IV PRN ×3 (15:33→22:53)
[2019-05-25] MEDS: HYDROmorphONE 1 MG/5 ML IV SYRINGE IV PRN ×2 (16:04→19:44)
[2019-05-25] MEDS: DEXTROSE 5%-LR 1,000 ML IV SCH (20:19)
[2019-05-25] MEDS: GABAPENTIN 400 MG CAP PO SCH (21:00)
[2019-05-25] MEDS: LAMOTRIGINE 100 MG TAB PO SCH (21:49)
[2019-05-25] MEDS: CYCLOBENZAPRINE 10 MG TAB PO SCH (21:49)
[2019-05-25] MEDS: CEFAZOLIN 1 GM/50 ML (PMX) 50 ML IVPB SCH (21:50)
[2019-05-26] VITALS (26 sets, daily range): BP systolic 88–145; BP diastolic 51–102; PULSE 90–127; RESP 9–26
[2019-05-26] MEDS: morphine 4 MG/ML VIAL IV PRN ×2 (01:08→03:08)
[2019-05-26] MEDS: DEXTROSE 5%-LR 1,000 ML IV SCH (03:09)
[2019-05-26] MEDS: HYDROCODONE/APAP (7.5/325) TAB NGT PRN ×2 (03:46→08:56)
[2019-05-26] MEDS ORDERED: LACTATED RINGER'S 1,000 ML IV SCH (04:30)
[2019-05-26] MEDS: HYDROmorphONE 1 MG/ML SYG IV PRN ×2 (04:41→08:34)
[2019-05-26] MEDS: CEFAZOLIN 1 GM/50 ML (PMX) 50 ML IVPB SCH ×3 (05:44→22:29)
[2019-05-26] MEDS: CYCLOBENZAPRINE 10 MG TAB PO SCH ×3 (08:27→20:58)
[2019-05-26] MEDS: SERTRALINE 100 MG TAB PO SCH (08:27)
[2019-05-26] MEDS: GABAPENTIN 400 MG CAP PO SCH ×2 (09:00→13:00)
[2019-05-26] MEDS: ONDANSETRON 4 MG INJ IV PRN ×2 (09:23→14:48)
[2019-05-26] MEDS ORDERED: FAMOTIDINE 20 MG TAB PO SCH (09:30)
[2019-05-26] MEDS ORDERED: HYDROmorphONE 1 MG/ML SYG IV ONE (11:00)
[2019-05-26] MEDS ORDERED: hydrALAzine 20 MG INJ IV PRN (12:00)
[2019-05-26] MEDS: HYDROmorphONE 2 MG/ML SYG IV PRN ×4 (13:15→23:28)
[2019-05-26] MEDS ORDERED: KETOROLAC 30 MG INJ IV PRN (17:00)
[2019-05-26] MEDS: HYDROCODONE/APAP (7.5/325) TAB PO SCH ×2 (17:50→22:29)
[2019-05-26] MEDS: GABAPENTIN 800 MG PO SCH (20:58)
[2019-05-26] MEDS: CIMETIDINE 200 MG PO PRN (20:58)
[2019-05-26] MEDS: LAMOTRIGINE 100 MG TAB PO SCH (20:58)
[2019-05-27] VITALS (24 sets, daily range): BP systolic 99–143; BP diastolic 36–117; PULSE 97–123; RESP 10–25
[2019-05-27] MEDS: HYDROmorphONE 2 MG/ML SYG IV PRN ×6 (04:12→22:07)
[2019-05-27] MEDS: HYDROCODONE/APAP (7.5/325) TAB PO SCH ×4 (04:13→22:06)
[2019-05-27] MEDS: CEFAZOLIN 1 GM/50 ML (PMX) 50 ML IVPB SCH ×3 (05:26→22:07)
[2019-05-27] MEDS: CYCLOBENZAPRINE 10 MG TAB PO SCH ×3 (09:05→21:09)
[2019-05-27] MEDS: GABAPENTIN 800 MG PO SCH ×3 (09:05→21:11)
[2019-05-27] MEDS: SERTRALINE 100 MG TAB PO SCH (09:05)
[2019-05-27] MEDS: CIMETIDINE 200 MG PO PRN ×4 (09:59→21:00)
[2019-05-27] MEDS: LAMOTRIGINE 100 MG TAB PO SCH (21:09)
[2019-05-28] MEDS: HYDROmorphONE 2 MG/ML SYG IV PRN ×6 (01:59→21:12)
[2019-05-28] MEDS: LORAZEPAM 0.5 MG TAB PO PRN ×2 (02:31→09:31)
[2019-05-28 04:00] VITALS: BP 107/68; PULSE 95; RESP 20
[2019-05-28] MEDS: HYDROCODONE/APAP (7.5/325) TAB PO SCH ×4 (04:40→22:55)
[2019-05-28 07:22] VITALS: BP 110/62; PULSE 106; RESP 18
[2019-05-28] MEDS: CYCLOBENZAPRINE 10 MG TAB PO SCH ×3 (09:12→20:55)
[2019-05-28] MEDS: SERTRALINE 100 MG TAB PO SCH (09:12)
[2019-05-28] MEDS: GABAPENTIN 800 MG PO SCH ×3 (09:12→20:55)
[2019-05-28 11:10] VITALS: BP 115/65; PULSE 105; RESP 18
[2019-05-28 15:03] VITALS: BP 112/61; PULSE 70; RESP 16
[2019-05-28 19:56] VITALS: BP 119/66; PULSE 101; RESP 18
[2019-05-28] MEDS: LAMOTRIGINE 100 MG TAB PO SCH (20:55)
[2019-05-28 23:57] VITALS: BP 115/69; PULSE 85; RESP 18
[2019-05-29] MEDS: HYDROmorphONE 2 MG/ML SYG IV PRN ×4 (00:09→14:35)
[2019-05-29 04:00] VITALS: BP 124/69; PULSE 98; RESP 20
[2019-05-29] MEDS: HYDROCODONE/APAP (7.5/325) TAB PO SCH ×4 (04:26→22:31)
[2019-05-29 07:19] VITALS: BP 133/74; PULSE 106; RESP 20
[2019-05-29] MEDS: GABAPENTIN 800 MG PO SCH ×3 (08:13→20:58)
[2019-05-29] MEDS: SERTRALINE 100 MG TAB PO SCH (08:13)
[2019-05-29] MEDS: CYCLOBENZAPRINE 10 MG TAB PO SCH ×3 (08:13→20:58)
[2019-05-29 11:41] VITALS: BP 122/65; PULSE 96; RESP 18
[2019-05-29 15:23] VITALS: BP 116/65; PULSE 84; RESP 16
[2019-05-29] MEDS: HYDROmorphONE 1 MG/ML SYG IV PRN (18:04)
[2019-05-29 20:25] VITALS: BP 126/63; PULSE 94; RESP 18
[2019-05-29] MEDS: LAMOTRIGINE 100 MG TAB PO SCH (20:58)
[2019-05-30] VITALS: BP 126/65; PULSE 84; RESP 20
[2019-05-30] MEDS: HYDROmorphONE 1 MG/ML SYG IV PRN ×6 (02:40→21:06)
[2019-05-30 04:00] VITALS: BP 116/60; PULSE 86; RESP 18
[2019-05-30] MEDS: HYDROCODONE/APAP (7.5/325) TAB PO SCH ×4 (04:18→22:59)
[2019-05-30 07:36] VITALS: BP 115/67; PULSE 87; RESP 18
[2019-05-30] MEDS: GABAPENTIN 800 MG PO SCH ×3 (08:07→21:12)
[2019-05-30] MEDS: CYCLOBENZAPRINE 10 MG TAB PO SCH ×3 (08:07→21:06)
[2019-05-30] MEDS: SERTRALINE 100 MG TAB PO SCH (08:07)
[2019-05-30 11:33] VITALS: BP 115/56; PULSE 91; RESP 18
[2019-05-30 15:40] VITALS: BP 109/67; PULSE 99; RESP 18
[2019-05-30 19:32] VITALS: BP 124/59; PULSE 90; RESP 18
[2019-05-30] MEDS: LAMOTRIGINE 100 MG TAB PO SCH (21:06)
[2019-05-31] VITALS: BP 127/62; PULSE 86; RESP 18
[2019-05-31] MEDS: HYDROmorphONE 1 MG/ML SYG IV PRN ×4 (01:08→14:48)
[2019-05-31 04:16] VITALS: BP 129/72; PULSE 87; RESP 18
[2019-05-31] MEDS: HYDROCODONE/APAP (7.5/325) TAB PO SCH ×2 (05:31→11:41)
[2019-05-31 07:37] VITALS: BP 115/73; PULSE 87; RESP 18
[2019-05-31] MEDS: CYCLOBENZAPRINE 10 MG TAB PO SCH ×2 (09:01→14:12)
[2019-05-31] MEDS: GABAPENTIN 800 MG PO SCH ×2 (09:02→13:36)
[2019-05-31] MEDS: SERTRALINE 100 MG TAB PO SCH (09:02)
[2019-05-31 12:15] VITALS: BP 143/80; PULSE 91; RESP 17
[2019-05-31 15:48] VITALS: BP 128/60; PULSE 81; RESP 18
== END 2019-05-31 16:30 | disposition home health service (06) | DRG 460 ==
LOC: REC 10:07 → EDSTATUS 12:00 → ICU 15:13 → UNDODISIN 05-27 21:18 → TEL 05-27 21:58
PROVIDERS: ADMIT Neurological Surgery; ATTEND Neurological Surgery
PROC: 0SG0071 Fusion of Lumbar Vertebral Joint with Autologous Tissue Substitute, Posterior Approach, Posterior Column, Open Approach (ICD-10-PCS; principal; 2019-05-25 12:00)
DX: M47.816 Spondylosis without myelopathy or radiculopathy, lumbar region (principal); M43.16 Spondylolisthesis, lumbar region; F41.9 Anxiety disorder, unspecified; F32.9 Major depressive disorder, single episode, unspecified; F17.200 Nicotine dependence, unspecified, uncomplicated; Z98.1 Arthrodesis status
CPT/HCPCS: 72100; 80048; 83735; 85025; 86850; 86900; 86901; 87081; 87086; 97110; 97116; 97162; 97530; C1713; C1762; J0690; J1170; J2175; J2250; J2270; J2405; J2710; J3010; J7120; J7121